=== PATIENT | female | born 1980 | race Caucasian/White ===

== ENCOUNTER 2018-05-04 10:50 | Emergency (ER) | payer MEDICAID ==
--- NOTE | 2018-05-04 11:04 | EDPHY ---
H & P Stated Complaint: Pelvic/abd pain Source: Patient Exam Limitations: No limitations - Personal History LMP (Females 10-55): Over 28 Days Ago Current Tetanus/Diphtheria Vaccine: Yes Tetanus Vaccine Date: < 10 years - Medical/Surgical History Hx Asthma: No Hx Chronic Respiratory Disease: No Hx Diabetes: Yes Hx Cardiac Disease: No Hx Renal Disease: No Hx Cirrhosis: No Hx Alcoholism: No Hx HIV/AIDS: No Hx Splenectomy or Spleen Trauma: No Other PMH: siezure disorder, DM - Social History Smoking Status: Never smoked Time Seen by Provider: 05/04/18 11:04 HPI/ROS: HPI: This is a 38-year-old female who presents with Chief Complaint: Suprapubic pain Location: Quality: Suprapubic pain Duration: 1 hr prior to arrival Signs and Symptoms: no fever, no nausea, no vomiting, no hematemesis, no blood in stool, no abdominal bloating, no diarrhea, no back pain, no urinary symptoms , no vaginal bleeding/discharge, no indigestion, no chest pain, no shortness of breath Timing: Acute, constant Severity: 01/03 Context: Patient reports that she was sitting at her desk working when she had sudden onset of suprapubic constant, severe, nonradiating pain. She reports that she feels bladder fullness but denies urinary urgency, urinary burning, urinary frequency. She believes that she may be starting a urinary tract infection. She denies fever, back pain, nausea, vomiting. No history of pyelonephritis. Patient reports last menstrual period was 4 weeks ago. Reports last sexual intercourse was over 2 years ago and denies concern for sexually transmitted infection and denies vaginal bleeding or vaginal discharge. Modifying Factors: None Comment: ROS: A comprehensive 10 system review of systems is otherwise negative aside from elements mentioned in the history of present illness. MEDICAL/SURGICAL/SOCIAL HISTORY: Medical history: Seizure disorder, diabetes mellitus. Surgical history: Social history: Employed. Never smoked. Family history noncontributory. CONSTITUTIONAL: Moderate distress, lying on right said and then rocking back and forth in bed holding suprapubic area middle-aged white female, nontoxic appearing, awake and alert HEENT: Atraumatic and normocephalic, PERRL, EOMI. Nares patent; no rhinorrhea; no nasal mucosal edema. Tympanic membranes clear. Oropharynx clear, no exudate and moist pink mucosa. Airway patent. No lymphadenopathy. No meningismus. Cardiovascular: Normal S1/S2, regular rate, regular rhythm, without murmur rub or gallop. PULMONARY/CHEST: Symmetrical and nontender. Clear to auscultation bilaterally. Good air movement. No accessory muscle usage. ABDOMEN: Soft, nondistended, moderate suprapubic tenderness, no rebound, no guarding, no peritoneal signs, no masses or organomegaly. No CVAT. EXTREMITIES: 2/2 pulses, strength 5/5, no deformities, no clubbing, no cyanosis or edema. NEUROLOGICAL: no focal neuro deficits. GCS 15. SKIN: Warm and dry, no erythema. no rash. Good capillary refill. (Fátima Teran) Constitutional: Initial Vital Signs Temperature (C) 36.6 C 05/04/18 10:53 Heart Rate 93 05/04/18 10:53 Respiratory Rate 18 05/04/18 10:53 Blood Pressure 114/80 05/04/18 10:53 O2 Sat (%) 99 05/04/18 10:53 O2 Delivery Mode Room Air Allergies/Adverse Reactions: hydrocodone Allergy (Verified 05/04/18 10:55) Home Medications: Medication Instructions Recorded Cephalexin [Keflex (RX)] 500 mg PO QID 7 Days cap 11/05/13 Insulin Regular, Human 11/05/13 Phenazopyridine HCl [Pyridium] 200 mg PO Q8 PRN #10 tab 11/05/13 Nitrofurantoin Macrobid [Macrobid] 100 mg PO BID #14 cap 05/04/18 Phenazopyridine HCl [Pyridium] 100 mg PO Q8 PRN 2 Days #6 tab 05/04/18 Medical Decision Making ED Course/Re-evaluation: Vital signs reviewed and stable upon arrival. Urinalysis, urine and medications ordered Given Pyridium 200 mg, p.o. Ativan 1 mg Urinalysis shows trace ketones, 2+ blood, epithelial cells and brown in color; suspect contamination Reassessed patient who is sleeping calmly in reports that this is how she presents with urinary tract infection even though her urine does not show vinod infection. Abdomen is now soft and nontender and I doubt surgical process or need for imaging. Patient will be treated for dysuria and acute cystitis Given prescription for Macrobid and Pyridium No signs of pyelonephritis or sepsis. This patient was seen under the supervision of my secondary supervising physician. I evaluated care for this patient independently. Discussed this patient with Dr. Tariq who did not see the patient. (Fátima Teran) I did not see this patient while she was in the emergency department. However her care was discussed with the PA while the patient was in the department. I agree with treatment plan and management (Joseph Tariq) Differential Diagnosis: Differential diagnosis includes but is not limited to gonorrhea, chlamydia, candidiasis, bacterial vaginosis, urinary tract infection, cystitis, bladder spasm, constipation, abdominal gas, ovarian cyst, ovarian torsion. (Fátima Teran) - Data Points Medications Given: Discontinued Medications Lorazepam (Ativan) 1 mg PO EDNOW ONE Stop: 05/04/18 11:10 Last Admin: 05/04/18 11:20 Dose: 1 mg Phenazopyridine HCl (Pyridium) 200 mg PO EDNOW ONE Stop: 05/04/18 11:10 Last Admin: 05/04/18 11:20 Dose: 200 mg Point of Care Test Results: Urine Collection Date 05/04/18 Collection Time 10:30 HCG Results Negative Departure - Departure Disposition: Home, Routine, Self-Care Clinical Impression: Cystitis Condition: Good Instructions: Nitrofurantoin Combination (By mouth), Urinary Tract Infection in Women (ED) Additional Instructions: Consume a minimum of 8-10 glasses of water or electrolyte fluid replacement drinks that include Gatorade, Powerade, Pedialyte. Take antibiotic as directed. Do not skip a dose. Take Pyridium for 3 times daily up to 2 days. Return to the Emergency Room if symptoms do not resolve in the next 72 hours, you spike a fever > 102 F, or experience intractable abdominal pain/nausea/ vomiting. Referrals: [facility],. [Clinic] - As per Instructions Prescriptions: Nitrofurantoin Macrobid [Macrobid] 100 mg PO BID #14 cap Phenazopyridine HCl [Pyridium] 100 mg PO Q8 PRN 2 Days #6 tab PRN Reason: Spasms
[2018-05-04] MEDS ORDERED: PHENAZOPYRIDINE HCL 200 MG TAB PO ONE (11:09)
[2018-05-04] MEDS ORDERED: LORazepam 1 MG TAB PO ONE (11:09)
[2018-05-04 13:01] VITALS: BP 122/87
== END 2018-05-04 13:06 | disposition home or self-care (01) ==
DX: N30.90 Cystitis, unspecified without hematuria (principal); E11.9 Type 2 diabetes mellitus without complications; Z79.4 Long term (current) use of insulin